=== PATIENT | male | born 1940 | race Caucasian/White ===

== ENCOUNTER 2018-09-19 17:31 | Inpatient (IN) | payer MEDICARE ==
[~2018-09-19] VITALS: Ht 167.6 cm; Wt 54.4 kg
[~2018-09-19 17:31] MED LIST: Carafate1 GM/10 ML PO; Ranitidine15 MG/1 ML PO
[2018-09-19 18:33] LABS: Hematocrit 21.5 % (37.0-53.0); Hemoglobin 7.2 g/dL (13.5-17.5); Mean Corpuscular HGB 33.5 pg (26.0-34.0); Mean Corpuscular HGB Conc 33.5 g/dL (31.5-36.5); Mean Corpuscular Volume 100 fL (80-100); Mean Platelet Volume 10.4 fL (9.1-12.4); NRBC ABSOLUTE 0.15 K/mm3 (0.00-0.02); NRBC Auto 2.5 /100 WBC (0.0-0.2); RDW Standard Deviation 63.7 fL (35.1-46.3); Red Blood Cell Count 2.15 M/mm3 (4.30-5.90); White Blood Cell Count 5.93 K/mm3 (4.00-11.30)
[2018-09-19 18:51] LABS: Platelet Count 37 K/mm3 (150-400)
[2018-09-19 18:57] LABS: Alanine Aminotransfer (ALT/SGP 19 U/L (12-78); Albumin/Globulin Ratio 0.8 (0.8-1.8); Alk Phos 73 U/L (50-136); Anion Gap 12 mmol/L (6-16); Aspartate Aminotrans (AST/SGOT 59 U/L (12-37); Bilirubin, Total 0.9 mg/dL (0.1-1.0); Blood Urea Nitrogen 21 mg/dL (8-24); Bun/Creatinine Ratio 25.2 (12.0-20.0); CO2, Blood 24 mmol/L (21-32); Calcium, Blood 9.9 mg/dL (8.5-10.1); Chloride, Blood 102 mmol/L (98-108); Creatinine, Blood 0.83 mg/dL (0.60-1.20); Globulin, Blood 3.7 g/dL (2.2-4.0); Glomerular Filtration Rate >60 (60-); Glucose, Blood 105 mg/dL (70-99); Potassium, Blood 4.1 mmol/L (3.5-5.5); Sodium, Blood 138 mmol/L (136-145); Total Protein, Blood 6.7 g/dL (6.4-8.2)
[2018-09-19 19:16] LABS: BAND PERCENT MAN 9 % (0-8); BASOPHILS PERCENT MAN 0 % (0-2); EOSINOPHILS PERCENT MAN 0 % (0-6); LYMPHOCYTES PERCENT MAN 22 % (21-46); METAMYELOCYTE ABSOLUTE MAN 0.23 K/mm3 (0.00-0.00); METAMYELOCYTE PERCENT MAN 4 % (0-0); MONOCYTES ABSOLUTE MAN 0.29 K/mm3 (0.16-1.47); MONOCYTES PERCENT MAN 5 % (4-13); MYELOCYTE ABSOLUTE MAN 0.11 K/mm3 (0.00-0.00); MYELOCYTE PERCENT MAN 2 % (0-0); NEUTROPHILS ABSOLUTE MAN 3.97 K/mm3 (1.96-9.15); SEG NEUTROPHILS PERCENT MAN 58 % (41-73); TOTAL CELLS COUNTED 100
[2018-09-19 19:46] LABS: International Normalized Ratio 1.03; Prothrombin Time Results 10.9 Sec (9.7-11.5)
[2018-09-19 22:46] LABS: IMMATURE RETIC FRACTION 33.9 % (2.3-16.0); RETIC HGB EQUIVALENT 33.5 pg (28.20-36.60); RETICULOCYTE COUNT PERCENT 3.41 % (0.50-2.50)
[2018-09-19 22:57] LABS: Percent Saturation 97.1 % (20.0-50.0)
[2018-09-20 04:42] LABS: Hematocrit 23.3 % (37.0-53.0); Hemoglobin 7.8 g/dL (13.5-17.5); Mean Corpuscular HGB 32.4 pg (26.0-34.0); Mean Corpuscular HGB Conc 33.5 g/dL (31.5-36.5); Mean Platelet Volume 10.2 fL (9.1-12.4); NRBC ABSOLUTE 0.19 K/mm3 (0.00-0.02); NRBC Auto 3.2 /100 WBC (0.0-0.2); RDW Coefficient Variation 17.8 % (11.7-14.2); RDW Standard Deviation 59.7 fL (35.1-46.3); Red Blood Cell Count 2.41 M/mm3 (4.30-5.90); White Blood Cell Count 6.02 K/mm3 (4.00-11.30)
[2018-09-20 05:03] LABS: Alanine Aminotransfer (ALT/SGP 16 U/L (12-78); Albumin, Blood 2.7 g/dL (3.4-5.0); Albumin/Globulin Ratio 0.8 (0.8-1.8); Alk Phos 71 U/L (50-136); Anion Gap 11 mmol/L (6-16); Aspartate Aminotrans (AST/SGOT 60 U/L (12-37); Bilirubin, Total 0.8 mg/dL (0.1-1.0); Blood Urea Nitrogen 19 mg/dL (8-24); Bun/Creatinine Ratio 23.4 (12.0-20.0); CO2, Blood 23 mmol/L (21-32); Calcium, Blood 9.1 mg/dL (8.5-10.1); Chloride, Blood 104 mmol/L (98-108); Creatinine, Blood 0.81 mg/dL (0.60-1.20); Globulin, Blood 3.3 g/dL (2.2-4.0); Glomerular Filtration Rate >60 (60-); Glucose, Blood 91 mg/dL (70-99); Potassium, Blood 3.8 mmol/L (3.5-5.5); Sodium, Blood 138 mmol/L (136-145)
[2018-09-20 05:11] LABS: Mean Corpuscular Volume 97 fL (80-100)
[2018-09-20 05:14] LABS: Platelet Count 31 K/mm3 (150-400)
--- NOTE | 2018-09-20 07:32 | NUR ---
Rn summary: Patient was admitted via stretcher form the ED at midnight. Pt is alert and oriented, very quiet and withdrawn. Pt has minimal jarred hx. Pt has fallen several times at home the last 2 weeks. Pt has been in bed only this shift. Pt was medicated x1 with 25mcg fentanyl for back pain with good relief. Pt has rested without complaint. Skin is pale, dry and has scattered eccymotic areas on all extremities. Pt had 1 unit PRBC hanging on admit. Blood finished. Plt level critical 31 this am, Dr. Rangel was notified, also of hgb of 7.8. Call light is in reach. Resting.
[2018-09-20 09:50] LABS: Carcinoembryonic Antigen 7.5 ng/mL (0.0-3.0)
[2018-09-20 12:18] LABS: Source, Urine Clean Catch
[2018-09-20 12:21] LABS: Appearance, Urine Clear (Clear); Bilirubin, Urine Neg (Neg); Blood, Urine 1+ (Neg); Color, Urine Yellow (P-Yellow); Glucose Qualitative, Urine Neg (Neg); Ketones, Urine 1+ (Neg); Leukocyte Esterase, Urine 1+ (Neg); Nitrite, Urine Neg (Neg); Protein, Urine 2+ (Neg); Urobilinogen, Urine 1+ (Normal)
[2018-09-20 12:30] LABS: Bacteria Few /hpf; Red Blood Cells, Urine 0-2 /hpf (0-2); Squamous Epithelial Cells Rare /hpf (Few)
--- NOTE | 2018-09-20 17:01 | NUR ---
SHIFT SUMMARY PT HAS HAD NO ACUTE CHANGES THIS SHIFT, MEDICATED 1X FOR PAIN IN LOWER BACK, ENCOURAGED PT TO SIT UP IN CHAIR, BRIEFLY DID FOR THERAPY W/1 ASSIST BUT REQUESTED TO GO BACK TO BED AFTER A FEW MINUTES. PT APPEARS TO BE SLEEPING AT THIS TIME, WILL CONT TO MONITOR UNTIL REPORT GIVEN TO NOC RN.
--- NOTE | 2018-09-21 04:06 | NUR ---
SHIFT SUMMARY NO ACUTE CHANGES THIS SHIFT. PT HAS SLEPT T/O THE SHIFT. REPEAT CT SCAN DONE EARLIER THIS SHIFT. PT 1 PA, OOB. USES THE URINAL INDEPENDENTLY AT BEDSIDE. NS INFUSING PER ORDERS. ASSESSMENT UNCHANGED. WILL CONTINUE TO MONITOR AND REPORT TO ONCOMING RN.
[2018-09-21 05:08] LABS: Hematocrit 22.5 % (37.0-53.0); Hemoglobin 7.3 g/dL (13.5-17.5); Mean Corpuscular HGB 31.3 pg (26.0-34.0); Mean Corpuscular HGB Conc 32.4 g/dL (31.5-36.5); Mean Corpuscular Volume 97 fL (80-100); Mean Platelet Volume 10.1 fL (9.1-12.4); NRBC ABSOLUTE 0.21 K/mm3 (0.00-0.02); NRBC Auto 3.8 /100 WBC (0.0-0.2); RDW Coefficient Variation 18.1 % (11.7-14.2); Red Blood Cell Count 2.33 M/mm3 (4.30-5.90); White Blood Cell Count 5.55 K/mm3 (4.00-11.30)
[2018-09-21 05:21] LABS: Platelet Count 27 K/mm3 (150-400)
--- NOTE | 2018-09-21 06:22 | NUR ---
HGB AND PLT HGB 7.3, PLT 27. THIS AM. DR. CENTENO CALLED AND NOTIFIED. 1 UNIT OF PRBC'S ORDERED.
--- NOTE | 2018-09-21 16:09 | NUR ---
SHIFT SUMMARY PT HAS HAD NO ACUTE CHANGES THIS SHIFT, MEDICATED PER MAR FOR PAIN, [facility] BUT ATTEMPTED TO AMBULATE INDEP THIS SHIFT. PT APPEARS TO BE SLEEPING AT THIS TIME, BED ALARM ON, WILL CONT TO MONITOR UNTIL REPORT GIVEN TO FLO RN.
--- NOTE | 2018-09-21 17:21 | NUR ---
Initial Visit: Palliative Care Consult for Advanced Care Planning and Symptom Management. Pt is A&Ox4 and reports 8/10 pain in his ribs and back. He states the pain medication helps a little but still experiences significant pain. Pt magali dyspnea. Pt appears mildly anxious. Engaged in therapeutic conversaton regarding goals of care. Pt denies any samaritan beliefs. Pt reports living alone in a small travel trailer in [place] at [facility]. He has a son Marty that lives in [place] and has not spoken with him in years. He has a brother Yfn that lives in [place]. Pt reports feeling exptremely weak and poor sense of well being for approximately a week. He states due to his weakness and energy level he requires assistance with ambulation, bathing, dressing, and transfers. Listened as Pt expresses concerns and fears regarding his diagnosis. Pt states he has fear of what the cancer will do. He states fear of the cancer taking his life and causing pain and suffering. Asked Pt if he has consider any plans if the Dr reports if the cancer is treatable and if he has considered plans if the Dr reports cancer is not treatable. Pt reports that if cancer is treatable he plans to persue treatment. He states being unsure if new is bad and cancer is not treatable. Discussed POLST formed that is on file that was recently completed by his friend. Current POLST states DNR, Comfort Measures Only, and No Artificial Treatment by Tube. Pt states that he would like to reconsider his POLST. Offered to help complete a new POLST and Pt states that he would like to think about it befor making a decision. As the visit continued Pt appeared to be shutting down and giving martha ques of wanting to be left alone such as turning television on. Offered to end visit and F/U tomorrow and Pt agreed. Spoke with Pt's nurse Mireya and she reports concerns of pain management. She reports that she gave only one table of the oxycodone and will plan to give 2 tablets next time. Emar allows 1-2 tablets. No other concerns reported at this time. Currently ADLS 3/6 Karn[place]sky 50% PPS 40% Plan: Will remain available for pain mangement. Will place social service consult for assistance with caregivers. Will continue to explore Pt's wishes for treatment. Current POLST on file is not valid, no physician signature.
--- NOTE | 2018-09-22 04:29 | NUR ---
SHIFT SUMMARY PT HAS RESTED OFF AND ON T/O NIGHT. EFFECT IS FLAT, CONVERSATION IS MINIMAL, HOWEVER PT IS PLESANT. PT MEDICATED FOR BACK PAIN PER EMAR ORDERS. HE DENIES NEEDS MOSTLY T/O THE NIGHT. REMEROM GIVEN FOR SLEEP, HS. HE STATES THAT IT DID NOT WORK FOR HIM, AND REQUESTS SOMETHING DIFFERENT FOR SLEEP. WILL NOTIFY DAYSHIFT RN FOR FOLLOW UP. ASSESSMENT OTHERWISE UNCHANGED. WILL CONTINUE TO MONITOR AND REPORT TO ONCOMING RN.
[2018-09-22 05:19] LABS: Hematocrit 26.2 % (37.0-53.0); Hemoglobin 8.5 g/dL (13.5-17.5); Mean Corpuscular HGB 30.5 pg (26.0-34.0); Mean Corpuscular HGB Conc 32.4 g/dL (31.5-36.5); Mean Platelet Volume 10.4 fL (9.1-12.4); NRBC ABSOLUTE 0.16 K/mm3 (0.00-0.02); NRBC Auto 3.3 /100 WBC (0.0-0.2); RDW Coefficient Variation 17.9 % (11.7-14.2); RDW Standard Deviation 57.9 fL (35.1-46.3); Red Blood Cell Count 2.79 M/mm3 (4.30-5.90); White Blood Cell Count 4.83 K/mm3 (4.00-11.30)
[2018-09-22 05:23] LABS: Mean Corpuscular Volume 94 fL (80-100)
[2018-09-22 05:24] LABS: Platelet Count 19 K/mm3 (150-400)
--- NOTE | 2018-09-22 18:23 | NUR ---
PT. SITTING UP IN BED EATING. NO NOTEABLE CHANGES THIS SHIFT. 1 UN[address]ATLETS GIVEN PER DR. NUNEZ. RADIOLOGIST REFUSED TO PERFORM BIOPSY TODAY BECAUSE OF LOW PLATELET COUNT. PT. COUGHING UP COPIOUS AMOUNTS OF CREAMY LOOKING SPUTUM. SUCTION SET UP FOR PT. TO USE. NO FURTHER WORD ABOUT BIOPSY, HOSPITALIST ONLY ONE TO SEE PT. TODAY.
--- NOTE | 2018-09-23 04:57 | NUR ---
AUTO BODY REPAIR TECHNICIAN SUMMARY NO ACUTE CHANGES THIS SHIFT. PT AAOX3, FORGETFUL AT TIMES. PT USES URINAL AT BEDSIDE WITH A STANDBY ASSIST. PT DENIES PAIN, N/V, SOB. PT ATE MINIMAL AMOUNT OF HIS DINNER LAST NIGHT BUT DID FINISH ENSURE AND TOMATO JUICE THAT WERE INCLUDED. PT ONLY HAS TOP DENTURE AND STATES IT'S DIFFICULT TO EAT FOOD WITH ONLY HIS TOP DENTURE. PT STATES HE LOST BOTTOM DENTURE "SEVERAL DAYS BEFORE COMING TO HOSPITAL". PT ALREADY ON [facility] SOFT DIET, WILL REPORT TO DAY RN TO OFFER ENSURES AND OTHER CALORIE RICH DRINKS THAT PT ENJOYS. VSS, WILL CONTINUE TO MONITOR.
[2018-09-23 05:40] LABS: Hemoglobin 8.6 g/dL (13.5-17.5); Mean Corpuscular HGB 30.9 pg (26.0-34.0); Mean Corpuscular HGB Conc 33.1 g/dL (31.5-36.5); Mean Corpuscular Volume 94 fL (80-100); Mean Platelet Volume 10.3 fL (9.1-12.4); NRBC ABSOLUTE 0.17 K/mm3 (0.00-0.02); NRBC Auto 3.7 /100 WBC (0.0-0.2); RDW Coefficient Variation 17.4 % (11.7-14.2); Red Blood Cell Count 2.78 M/mm3 (4.30-5.90)
[2018-09-23 05:49] LABS: Platelet Count 30 K/mm3 (150-400)
[2018-09-23 06:06] LABS: BAND PERCENT MAN 10 % (0-8); BASOPHILS ABSOLUTE MAN 0.13 K/mm3 (0.00-0.23); BASOPHILS PERCENT MAN 3 % (0-2); EOSINOPHILS PERCENT MAN 0 % (0-6); LYMPHOCYTES ABSOLUTE MAN 1.74 K/mm3 (0.84-5.20); LYMPHOCYTES PERCENT MAN 38 % (21-46); MONOCYTES ABSOLUTE MAN 0.23 K/mm3 (0.16-1.47); MONOCYTES PERCENT MAN 5 % (4-13); NEUTROPHILS ABSOLUTE MAN 2.48 K/mm3 (1.96-9.15); SEG NEUTROPHILS PERCENT MAN 44 % (41-73); TOTAL CELLS COUNTED 100
[2018-09-23 06:15] LABS: Alanine Aminotransfer (ALT/SGP 19 U/L (12-78); Albumin, Blood 2.6 g/dL (3.4-5.0); Albumin/Globulin Ratio 0.8 (0.8-1.8); Alk Phos 77 U/L (50-136); Anion Gap 9 mmol/L (6-16); Aspartate Aminotrans (AST/SGOT 92 U/L (12-37); Bilirubin, Total 1.3 mg/dL (0.1-1.0); Blood Urea Nitrogen 12 mg/dL (8-24); Bun/Creatinine Ratio 18.8 (12.0-20.0); CO2, Blood 23 mmol/L (21-32); Calcium, Blood 8.7 mg/dL (8.5-10.1); Chloride, Blood 105 mmol/L (98-108); Creatinine, Blood 0.64 mg/dL (0.60-1.20); Globulin, Blood 3.3 g/dL (2.2-4.0); Glomerular Filtration Rate >60 (60-); Glucose, Blood 98 mg/dL (70-99); Potassium, Blood 3.5 mmol/L (3.5-5.5); Sodium, Blood 137 mmol/L (136-145); Total Protein, Blood 5.9 g/dL (6.4-8.2)
[2018-09-23 12:46] LABS: Mean Platelet Volume 9.6 fL (9.1-12.4); Platelet Count 64 K/mm3 (150-400)
--- NOTE | 2018-09-23 15:28 | NUR ---
Pt visit this afternoon. Pt reports 03/03 and states that he has not had any medication is a while. Educated Pt on the importance of pain management and keeping pain under control. He reports the medication brings his pain down to a tolerable level. Answered questions regarding plans for biopsy and possible treatment options. Educated Pt on prognosis based off Dr Simon's note. Pt would like to pursue treatment at this time. Pt reports that he would like to complete a new POLST. Educated Pt on each section of life sustaining measures. Pt chooses DNR, Limited Treatment, and No Artificial Nutrition by tube. Pt reports no concerns at this time. Spoke with Pt's nurse Anne and reported his pain level. Plan: Will remain availale for symptom management and will fax copy of POLST to Medical Records upon hospitalist signature.
--- NOTE | 2018-09-23 19:17 | NUR ---
PT. LYING QUIETLY AT THIS TIME. PT. RECEIVED 1 UNITS PLATELETS TODAY WHICH BROUGHT HIS PLT COUNT TO 64. NOTIFIED DR. OSCAR., AND CT SO BIOPSY COULD BE DONE. ZHANG NEVILLE PUT IN BECAUSE OTHER WAS CANCELLED YESTERDAY. CT CALLED CALLED TO SAY THEY COULDNT DO IT TODAY BUT WOULD DO IT TOMORROW. PT. PULLED HIS IV AROUND 1600 THIS AFTERNOON AND THERE WAS BLOOD EVERYWHERE. NEW POWER GLIDE STARTED SO THE PPN COULD BE STARTED. PT. UNABLE TO SWALLOW FOOD OR LIQUIDS, THEY JUST COME BACK UP. NOTIFIED ORDERED PN TO BE STARTED.
--- NOTE | 2018-09-23 23:43 | NUR ---
PAIN PT NPO AT THIS TIME. C/O OF 9 OUT OF 10 BACK PAIN. AMINISTERED 25 MCG IV FENTANYL. THIS IS PT FIRST TIME RECIEVING THIS MED, HE NORMALLY TAKES PO PAIN MEDS. HOWEVER, PT IS NPO STATED ABOVE. WILL CONT TO MONITOR.
[2018-09-24 06:15] LABS: BASOPHILS ABSOLUTE AUTO 0.03 K/mm3 (0.00-0.23); BASOPHILS PERCENT AUTO 1 % (0-2); EOSINOPHILS ABSOLUTE AUTO 0.04 K/mm3 (0.00-0.68); EOSINOPHILS PERCENT AUTO 1 % (0-6); Hematocrit 26.4 % (37.0-53.0); Hemoglobin 8.7 g/dL (13.5-17.5); IMMATURE GRAN ABSOLUTE AUTO 0.11 K/mm3 (0.00-0.10); IMMATURE GRAN PERCENT AUTO 2 % (0-1); LYMPHOCYTES ABSOLUTE AUTO 2.04 K/mm3 (0.84-5.20); LYMPHOCYTES PERCENT AUTO 44 % (21-46); MONOCYTES ABSOLUTE AUTO 0.36 K/mm3 (0.16-1.47); MONOCYTES PERCENT AUTO 8 % (4-13); Mean Corpuscular HGB 31.9 pg (26.0-34.0); Mean Platelet Volume 10.7 fL (9.1-12.4); NEUTROPHILS ABSOLUTE AUTO 2.11 K/mm3 (1.96-9.15); NEUTROPHILS PERCENT AUTO 45 % (41-73); NRBC ABSOLUTE 0.14 K/mm3 (0.00-0.02); RDW Coefficient Variation 17.9 % (11.7-14.2); RDW Standard Deviation 60.3 fL (35.1-46.3); Red Blood Cell Count 2.73 M/mm3 (4.30-5.90); White Blood Cell Count 4.69 K/mm3 (4.00-11.30)
[2018-09-24 06:17] LABS: Magnesium, Blood 1.5 mg/dL (1.6-2.4); Phosphorus, Blood 3.5 mg/dL (2.5-4.9); Triglycerides 226 mg/dL (30-160)
[2018-09-24 06:27] LABS: Mean Corpuscular Volume 97 fL (80-100)
[2018-09-24 06:29] LABS: Platelet Count 49 K/mm3 (150-400)
--- NOTE | 2018-09-24 06:32 | NUR ---
CRITICALLY LOW PLATELET ON 09/24 @ 6049, NOTIFIED BY LAB OF CRITICALLY LOW PLATELET OF 49. SPOKE WITH PATROL COMMANDER ABOUT NEEDING PLATELET OVER [address] TAKE PL[address]. DECIDED PLACING CALL TO HOSPITALIST IS NOT NECESSARY PLATETLET IS ABOVE 40. WILL CONT TO MONITOR.
--- NOTE | 2018-09-24 06:37 | NUR ---
SHIFT SUMMARY: PT BECOMES INCREASINGLY CONFUSED THE NIGHT PROGRESSES, REPORTS SEEING "BIRDS" IN HIS RM, AND CONVINCED THE SINK IS MISSING. PT ALSO ASKS, "ARE WE STILL IN [place]?". ALERT TO SELF, PERSON, AND DATE/YEAR. ABLE TO ANSWER Q'S AND FOLLOW COMMANDS. VERY WEAK GAIT AND STUMBLES JUST STANDING UP AT BEDSIDE; BED ALARM ON FOR SAFETY. PT NPO D/T ASPIRATION RISK. C/O OF ACID REFLUX, RECIEVED ORDER FOR IV PEPCID BID (SEE EMAR). ADMINISTERED 25 MCG IV FENTANYL FOR BACK PAIN TWICE, PROVIDES RELIEF. PT REFUSES SUPPOSITORY TONIGHT, "GET THAT THING AWAY FROM ME, NO WAY" AND SWATS HAND. CRITICALLY LOW PLATELET OF 49 WITH THIS AM LABS. PPN RUNNING @ 96 ML/HR. NO OTHER CHANGES TO REPORT. WILL CONT TO MONITOR AND PROVIDE CARE UNTIL PRESUMED BY ONCOMING RN.
[2018-09-24 08:31] LABS: Free Thyroxine 1.25 ng/dL (0.70-1.60)
[2018-09-24 08:50] LABS: Thyroid Stimulating Hormone 17.1 uIU/mL (0.360-4.800)
--- NOTE | 2018-09-24 15:38 | NUR ---
Received call from Pt's nurse Anne who reports biposy was not performed due to Pt's inability to lie still. Called and received V/O from Dr Marquez for Ativan 1-2mg IV one time before procedure. Spoke with Radiologist nuclear engineering technician and she reports the do not have time to fit Pt in for today and will attempt tomorrow pending Pt's platlet count. Spoke with Kerry clinical case manager regarding Pt's condition and options for treatment. Based off Dr Simon's note, it appears Dr Simon would like to afford every opportunity for Pt to receive treatment. Currently Pt lives alone in small travel trailer in [place]. After discussion with Pt yesterday, Pt would like to pursue treatment. Based off Pt's current condition Pt's safety is at risk if her were to discharge home to receive treatment at the cancer center. His energy level is significantly decreased and requires considerable assistance with his ADL's. Kerry reports that she will relay information to clinical case manager Brandy. May consider a higher level of care such as a foster home in which he can be transported to cancer center to recieve treatment. Pt's current level of decision making is marginal and if case becomes much more complex may need to consider ethics consult. Will remain available
--- NOTE | 2018-09-24 17:26 | NUR ---
PT. SLEEPING OPENS EYES AND THEN CLOSES THEM BACK WHEN SPOKEN TO. FRIEND MARJAN CAME IN THIS AFTERNOON AND SPOKE WITH S.S. REGARDING BECOMING A POWER OF WHITE SIDEWALL TIRE BUFFER FOR THE PATIENT AND GET HIM STARTED ON SOME TYPE OF ASSISSTANCE. PT. WENT FOR HIS BIOPSY THIS AFTERNOON AT [address] OF HEAD AT SAME TIME. RADIOLOGIST SAID THEY WERE UNABLE TO PERFORM THE BIOPST BECAUSE PT. UNABLE TO LIE STILL OR QUIT COUGHING, HAD TO CLEAN THE TABLE 2 OR 3 TIMES FROM WHAT THE PT. WAS COUGHING UP. ALSO RELATED THEY ARE GOING TO BE UNABLE TO PERFORM THE LIVER BIOPSY BUT WOULD HAVE TO DO A LUNG BIOPSY THEY CANT REACH THE LIVER. RADIOLOGIST FEELS ITS POSSIBLE WHEN THE LUNG BIOPSY IS DONE THAT IT WILL COLLAPSE THE LUNG. CALLED DR. GERARDO THE MORNING FOR A SURGICAL CONSULT TO PLACE A FEEDING TUBE IN PT. DR. SILVA THE ONE I NEEDED TO CALL IS THE GI. RELATED THIS TO DR. MOONEY AND HE PUT A CONSULT IN FOR GI. DR. HONG CONSULTED. SPOKE WITH PALLIATIVE CARE REGARDING MY COONCERNS OF A FEEDING TUBE BEING PLACED. PT. HAS A POLST SAYING HE DID NOT WANT A FEEDING TUBE, HIS FRIEND MARJAN ALSO VERIFIED HE DIDN'T WANT ONE, THEY DISCUSSED IT AND SHE HELPED HIM WITH FILLING OUT THE POLST. RADIOLOGY IS GOING TO ATTEMPT THE BIOPSY AGAIN TOMORROW AND DR. OSCAR WROTE FOR ATIVAN TO BE GIVEN, THE MED IS STILL ON THE EMAR. NO OTHER NOTEABLE CHANGES THIS SHIFT. HIM FILL OUT THE
--- NOTE | 2018-09-24 17:48 | NUR ---
PT. ALSO REFUSED TO WORK WITH PT/OT TODAY
[2018-09-25 05:12] LABS: Hematocrit 23.2 % (37.0-53.0); Hemoglobin 7.9 g/dL (13.5-17.5); Mean Corpuscular HGB 32.1 pg (26.0-34.0); Mean Corpuscular HGB Conc 34.1 g/dL (31.5-36.5); Mean Platelet Volume 10.1 fL (9.1-12.4); NRBC ABSOLUTE 0.14 K/mm3 (0.00-0.02); NRBC Auto 3.6 /100 WBC (0.0-0.2); RDW Coefficient Variation 17.3 % (11.7-14.2); RDW Standard Deviation 56.4 fL (35.1-46.3); Red Blood Cell Count 2.46 M/mm3 (4.30-5.90); White Blood Cell Count 3.92 K/mm3 (4.00-11.30)
[2018-09-25 05:21] LABS: Mean Corpuscular Volume 94 fL (80-100)
[2018-09-25 05:22] LABS: Platelet Count 39 K/mm3 (150-400)
[2018-09-25 05:35] LABS: BAND PERCENT MAN 7 % (0-8); BASOPHILS PERCENT MAN 0 % (0-2); EOSINOPHILS ABSOLUTE MAN 0.03 K/mm3 (0.00-0.68); EOSINOPHILS PERCENT MAN 1 % (0-6); LYMPHOCYTES % ATYPICAL MANUAL 1 % (0-0); LYMPHOCYTES ABSOLUTE MAN 1.29 K/mm3 (0.84-5.20); LYMPHOCYTES PERCENT MAN 32 % (21-46); METAMYELOCYTE ABSOLUTE MAN 0.03 K/mm3 (0.00-0.00); METAMYELOCYTE PERCENT MAN 1 % (0-0); MONOCYTES ABSOLUTE MAN 0.31 K/mm3 (0.16-1.47); MONOCYTES PERCENT MAN 8 % (4-13); NEUTROPHILS ABSOLUTE MAN 2.23 K/mm3 (1.96-9.15); SEG NEUTROPHILS PERCENT MAN 50 % (41-73); TOTAL CELLS COUNTED 100
--- NOTE | 2018-09-25 06:03 | NUR ---
SHIFT SUMMARY: PT IS LESS ALERT AND DROWSY TONIGHT. NO NARCOTICS GIVEN. ALERT TO SELF ONLY, UNABLE TO REPORT LOCATION AND MONTH/YEAR. DOES NOT ANSWER QUESTIONS APPROPRIATELY, OR EVEN AT ALL AT TIMES. Q2H TURNS IMPLEMENTED PT IS BECOMING VERY WEAK AND UNABLE TO SHIFT SELF IN BED. LS DIM T/O, 02 SATS WNL ON RA. NPO D/T ASPIRATION RISK. PPN RUNNING @ 96 ML/HR. Q6H CBG WNL. CRITICAL LOW PLATELET OF 39 THIS AM, WHICH MAY AFFECT BIOPSY TODAY. NO OTHER CHANGES TO REPORT. WILL CONT TO MONITOR AND PROVIDE CARE UNTIL PRESUMED BY ONCOMING RN.
[2018-09-25 06:37] LABS: Alanine Aminotransfer (ALT/SGP 20 U/L (12-78); Albumin, Blood 2.4 g/dL (3.4-5.0); Albumin/Globulin Ratio 0.7 (0.8-1.8); Alk Phos 67 U/L (50-136); Anion Gap 10 mmol/L (6-16); Aspartate Aminotrans (AST/SGOT 76 U/L (12-37); Bilirubin, Total 0.9 mg/dL (0.1-1.0); Blood Urea Nitrogen 14 mg/dL (8-24); Bun/Creatinine Ratio 23.6 (12.0-20.0); CO2, Blood 23 mmol/L (21-32); Calcium, Blood 8.7 mg/dL (8.5-10.1); Chloride, Blood 102 mmol/L (98-108); Creatinine, Blood 0.59 mg/dL (0.60-1.20); Globulin, Blood 3.4 g/dL (2.2-4.0); Glomerular Filtration Rate >60 (60-); Glucose, Blood 119 mg/dL (70-99); Phosphorus, Blood 3.7 mg/dL (2.5-4.9); Potassium, Blood 3.6 mmol/L (3.5-5.5); Sodium, Blood 135 mmol/L (136-145); Total Protein, Blood 5.8 g/dL (6.4-8.2)
[2018-09-25 06:46] LABS: Magnesium, Blood 1.7 mg/dL (1.6-2.4)
--- NOTE | 2018-09-25 14:22 | NUR ---
Therapeutic Pt visit this afternoon. Pt resting in bed upon arrival and appears comfortable. Pt reports his pain is currently managed. Attempted to engage in discussion regarding things Pt likes to do. Pt romi mentions that he likes to watch football but does not elaborate any further. Pt seems withdrawn today. Attempted to talk about the weather in hopes Pt would engage with little success. Pt reports no concerns and is agreeable for this RN to come back and visit tomorrow or the next day. Will remain available.
--- NOTE | 2018-09-25 16:21 | NUR ---
Follow up this morning on patient. pt resing and comfotable. Review of patient needs for support through treatment and discharge. Review with daycare manager getting documention from Kerry his friend so pt has surrogate decison maker and support. Review of strategies of placement so he can get rides and care. When plan formalized with physicians will get him supportive care.
--- NOTE | 2018-09-25 18:18 | NUR ---
SHIFT SUMMARY THE PATIENT PRESENTED THIS SHIFT WITH VITALS WNL, A&O X3 AND WITH LUNGS SOUNDS THAT WERE DIMINISHED ND COARSE. THE PATIENT'S DOCTOR ORDERED A G TUBE PLACEMENT BY DR. MOROCHO. THE PATIENT RECEIVED A UNIT OF PLATELETS THIS AFTERNOON BEFORE HIS SCHEDULED SURGERY. THE PATIENT HAD DIFFERENT ORDERS FOR HIS IV NUTRICION. THE PATIENT ALSO HAD HIS PAIN MEDICATION CHANGED TO MORPHINE AND HE SEEMS TO BE HAVING LESS CONFUSION NOW. THE PATIENT IS WATCHING TV, WILL CONTINUE TO MONITOR.
--- NOTE | 2018-09-25 19:19 | NUR ---
09/25/181918 Ruslan Loredo Bite Block Placed3-LEAD EKG REVIEWED WITH PHYSICIAN PRIOR TO START OF PROCEDURE.Patient to ENDO 1History, Chart, Medications and Allergies reviewed before start of procedure.MONITOR INTACT WITH CONTINUOUS PULSE OXIMETRY AND INTERMITTENT BP.O2 VIA N/C INTACT THROUGHOUT SEDATION/PROCEDURE.See Anesthesia record
--- NOTE | 2018-09-25 19:26 | NUR ---
PT OFF UNIT @ START OF SHIFT FOR G TUBE PLACEMENT.
--- NOTE | 2018-09-25 22:37 | NUR ---
PT ARRIVED BACK TO UNIT @ 2014. G TUBE PLACEMENT UNSUCCESSFUL ESOPHAGEAL MASS IS TOO LARGE. BIOPSY TAKEN OF ESOPHAGEAL MASS PER DR DANIELS.
[2018-09-26 05:34] LABS: Hematocrit 23.5 % (37.0-53.0); Mean Corpuscular HGB 31.9 pg (26.0-34.0); Mean Corpuscular Volume 94 fL (80-100); Mean Platelet Volume 12.5 fL (9.1-12.4); NRBC ABSOLUTE 0.19 K/mm3 (0.00-0.02); NRBC Auto 5.2 /100 WBC (0.0-0.2); Platelet Count 62 K/mm3 (150-400); RDW Coefficient Variation 17.8 % (11.7-14.2); RDW Standard Deviation 57.6 fL (35.1-46.3); Red Blood Cell Count 2.51 M/mm3 (4.30-5.90); White Blood Cell Count 3.66 K/mm3 (4.00-11.30)
[2018-09-26 05:57] LABS: BAND PERCENT MAN 15 % (0-8); BASOPHILS PERCENT MAN 0 % (0-2); EOSINOPHILS ABSOLUTE MAN 0.03 K/mm3 (0.00-0.68); EOSINOPHILS PERCENT MAN 1 % (0-6); LYMPHOCYTES ABSOLUTE MAN 1.02 K/mm3 (0.84-5.20); LYMPHOCYTES PERCENT MAN 28 % (21-46); METAMYELOCYTE PERCENT MAN 3 % (0-0); MONOCYTES ABSOLUTE MAN 0.21 K/mm3 (0.16-1.47); MONOCYTES PERCENT MAN 6 % (4-13); MYELOCYTE ABSOLUTE MAN 0.03 K/mm3 (0.00-0.00); MYELOCYTE PERCENT MAN 1 % (0-0); NEUTROPHILS ABSOLUTE MAN 2.23 K/mm3 (1.96-9.15); SEG NEUTROPHILS PERCENT MAN 46 % (41-73); TOTAL CELLS COUNTED 100
[2018-09-26 07:15] LABS: Magnesium, Blood 1.6 mg/dL (1.6-2.4)
[2018-09-26 07:18] LABS: Alanine Aminotransfer (ALT/SGP 22 U/L (12-78); Albumin, Blood 2.3 g/dL (3.4-5.0); Albumin/Globulin Ratio 0.6 (0.8-1.8); Alk Phos 72 U/L (50-136); Anion Gap 9 mmol/L (6-16); Aspartate Aminotrans (AST/SGOT 72 U/L (12-37); Bilirubin, Total 0.8 mg/dL (0.1-1.0); Blood Urea Nitrogen 16 mg/dL (8-24); Bun/Creatinine Ratio 28.5 (12.0-20.0); CO2, Blood 24 mmol/L (21-32); Calcium, Blood 8.6 mg/dL (8.5-10.1); Chloride, Blood 100 mmol/L (98-108); Creatinine, Blood 0.56 mg/dL (0.60-1.20); Globulin, Blood 3.6 g/dL (2.2-4.0); Glomerular Filtration Rate >60 (60-); Glucose, Blood 107 mg/dL (70-99); Phosphorus, Blood 3.5 mg/dL (2.5-4.9); Potassium, Blood 3.6 mmol/L (3.5-5.5); Sodium, Blood 133 mmol/L (136-145); Total Protein, Blood 5.9 g/dL (6.4-8.2)
--- NOTE | 2018-09-26 07:38 | NUR ---
SHIFT SUMMARY: PT UNABLE TO HAVE G TUBE PLACEMENT ESOPHAGEAL MASS IS TOO LARGE TO PASS THROUGH. PER DR DANIELS, PT ESOPHAGUS IS OCCLUDED. PT TREATED 1X FOR PAIN. CLINIMIX AND FAT EMULSION RUNNING TOGETHER IN RANDAL PG. PT SEEMS FLAT, WITHDRAWN TONIGHT. NO OTHER CHANGES TO REPORT. WILL CONT TO MONITOR AND PROVIDE CARE UNTIL PRESUMED BY ONCOMING RN.
--- NOTE | 2018-09-26 15:15 | NUR ---
Pt visit this afternoon. Viewed Dr Simon's note and recommendation regarding hospice. Asked Pt if he had any quesitons regarding Dr Simon's conversation and his recommendation. Pt states that he chooses hospice. Offered Pt to express concerns and fears regarding this decision and prognosis. Pt states "I wish people would quit worrying about me". Asked Pt if this meant that he does not like being the center of attention and he states "no I don't like being the center of attention". Educated Pt on hospice philosphy with V/U made by Pt. Educated Pt on philosophy of comfort measures and Pt reports that he would like to start comfort measures now. Received permission from Pt to contact his friend Kerry regarding his decisions. Called and spoke with Kerry and reported plan. She states that she will be in tonight or tomorrow to visit. She also states that she will discuss completing new POLST with Pt. Spoke with Dr Marquez regarding Pt's wishes and Dr Marquez is agreeable with plan. Placed comfort measure order, comfort measure order set, discontinued maintenance medication per V/O from Dr Marquez. Spoke with Pt's nurse Gian and he is agreeable with plan. Spoke with case folder Brandy regarding plan including possible placement for Pt. Brandy reports she has Pt's friend working with [employer]. Plan: Pt placed on comfort care. Possible placement to foster home or custodial on hospice. Will remain available for symptom management.
--- NOTE | 2018-09-26 16:46 | NUR ---
SHIFT SUMMARY THE PATIENT PRESENTED THIS WITH DIMISHED LUNG SOUNDS, A&O X3 AND WITH VITALS THAT WERE WNL, EXCEPT HIS TEMP WAS UP TO 100.2. THE PATIENT'S TEMP WAS BACK DOWN TO 98.5 WITHIN A HOUR. THE PATIENT WAS MOVED TO COMFORT CARE THIS SHIFT. WILL CONTINUE TO MONITOR.
--- NOTE | 2018-09-27 05:05 | NUR ---
PT DEVELOPED RASH OVER ENTIRE UPPER CHEST WITH INCREASED CONFUSION. THIS NURSE CALLED DR WEBER AND ADVISED OF ABOVE WITH ORDERS FOR BENADRY 25MG IVP RECEIVED.
--- NOTE | 2018-09-27 05:50 | NUR ---
77 Y/O MALE COMFORT CARE PATIENT RESTED QUIETYLY 1/2 SHIFT. PT GIVEN ROXANOL 10MG PO AT 0300 AND THEN ATIVAN 1MG IVP FOR INCREASED ANXIETY. PT DEVELOPED HIVES TO ENTIRE CHEST WITH BENADRYL 25MG IVP GIVEN. PT VERY RESTLESS AND REQUIRED STAFF TO WATCH CLOSELY AND BED ALARM ON. PTS BED IN LOW POSITION AND CALL LIGHT AT SIDE.
--- NOTE | 2018-09-27 14:01 | NUR ---
PATIENT ASLEEP. NO DISTRESS NOTED. BED ALARM ON
--- NOTE | 2018-09-27 14:02 | NUR ---
PATIENT HAD BRIEF AND BED CHANGED. CONTINUES TO SHOW NO SS OF DISTRESS
--- NOTE | 2018-09-27 15:46 | NUR ---
COATER OPERATOR INSULATION BOARD AND REPOSITIONED AND CHANGED BRIEF. HALDOL GIVEN FOR AGITATION. BED ALARM IN PLACE. OFFERED ICE CHIPS
--- NOTE | 2018-09-27 19:12 | NUR ---
SHIFT SUMMARY: PATIENT XFR FROM 360 THIS SHIFT. PATIENT ALERT; ORIENTED TO SELF; CALM, COOPERATIVE WITH CARE. NO C/O PAIN OR NAUSEA. AWAITING D/C TO SNF OR ADULT FOSTER CARE WITH HOSPICE. REPORT GIVEN TO ONCOMING RN.
--- NOTE | 2018-09-28 05:30 | NUR ---
VSS, FEBRILE, A/O TO SELF AND LOCATION AT TIMES, IMPULSIVE, JUMPS OOB FREQUNTLY, HIGH FALL RISK, BED ALARM, PT REPORTS TAHT HE HAS CANCER AND QUESTIONS WHY WE ARE PROTECTING HIM FROM FALLING. VERY RESTLESS OVERNOC. WILL REPORT TO ON-COMING SHIFT.
--- NOTE | 2018-09-28 06:21 | NUR ---
PT HAS PULLED OUT HIS POWERGLIDE THAT WAS IN HIS LEFT UPPER ARM. PT'S ARM HAD BEEN BANDAGED WITH ZANDRA BANDAGE TO DISCOURAGE THIS FROM HAPPENING. PT IS NPO PENDING TREATMENT PLAN FROM MD. NO FLUIDS/NUTRITION HAS BEEN ORDERED THRU THAT LINE YET. PT REMAINS APATHETIC TO IT'S REMOVAL AND STATES THAT HE HAS CANCER AND WANTS TO GO HOME. WILL REPORT TO ON-COMING SHIFT.
--- NOTE | 2018-09-28 08:20 | NUR ---
Visited with Chino this morning. He has a chronic weak cough and c/o his back being tired from laying in bed. Offered to reposition him , but he declined. He is having visual hallucinations and asking his aunt sitting the chair next to him what they just had for lunch. He voices no requests. Will continue to keep him comfortable. He is NPO with ice chips. He appears calm and not in any distress at this time.
--- NOTE | 2018-09-28 13:05 | NUR ---
PT IN NO APPARENT DISTRESS. NO DYSPNEA/SECRETIONS. NO FAMILY MEMBERS PRESENT. WCTM.
--- NOTE | 2018-09-28 13:08 | NUR ---
PT IN NO APPARENT DISTRESS. NO DYSPNEA/SECRETIONS. NO FAMILY MEMBERS PRESENT. WCTM.
--- NOTE | 2018-09-28 18:54 | NUR ---
SHIFT SUMMARY: NO ACUTE CHANGES TO REPORT THIS SHIFT. PT ALERT; ORIENTED TO SELF. COMFORT CARE MEASURES REMAIN IN EFFECT. PT REMAINS NPO R/T ESOPHAGEAL MASS. MEDICATED FOR BACK & NECK PAIN PER EMAR. AWAITING HOSPICE IN SNF OR ADULT FOSTER HOME. REPORT GIVEN TO ONCOMING RN.
--- NOTE | 2018-09-28 19:46 | NUR ---
VSS, AFEBRILE, ALERT, RESTLESS, MUMBLING ALMOST INCOHERENTLY, PULLING AT HIS BRIEF AND MOVING HIS LEGS RESTLESSLY IN BED. WILL MEDICATE PER ORDER
--- NOTE | 2018-09-29 06:11 | NUR ---
VSS, AFEBRILE, PT RESTLESS AND IRRITABLE IN THE EARLY PART OF THIS SHIFT. PT WAS MEDICATED FOR PAIN PER ORDER AND HAS SLEPT ALL NIGHT SINCE THEN. NO FURTHER C/O PAIN OR DISCOMFORT. PT IS MONITORED CLOSELY BY STAFF.
--- NOTE | 2018-09-29 10:20 | NUR ---
DR. OSCAR SAID OK TO PUT IN NO IV ACCESS NEEDED ORDER. NOTIFIED DR. OSCAR PT HAS IV PEPCID ORDERED. NOTIFIED DR. OSCAR PHARMACY REPORTS THEY DO NOT HAVE PEPCID IN SUBLINGUAL OR IM. DR. OSCAR SAID TO D/C PEPCID IF PHARMACY DOES NOT HAVE LIQUID PEPCID. PEPCID IN LIQUID FORM NOT AVAILABLE. NO OTHER NEW ORDERS AT THIS TIME.
--- NOTE | 2018-09-29 16:15 | NUR ---
SHIFT SUMMARY- PT ASLEEP MOST OF THIS SHIFT. PT WOKE UP BRIEFLY THIS AFTERNOON. PT DENIES PAIN. DENIES SOB. RESP E/U ON RA. DENIES N/V. TURNS Q2H. NO OTHER SIGNIFICANT CHANGES THIS SHIFT.
--- NOTE | 2018-09-29 19:12 | NUR ---
pt resing comfortably at tiem of visit sleeping most of time. Review of medication needs with nurisng to main tain comfort.
--- NOTE | 2018-09-30 04:43 | NUR ---
SHIFT SUMMARY PT ADMITTED FOR WEAKNESS. NOTED TO HAVE AN ESOPHAGEAL MASS THAT IS INVASIVE AND MODERATELY DIFFERENTIATED SQUAMOUS CELL CARCINOMA. DNR AND COMFORT CARE. NO KELLY ACCESS NEEDED. UNSURE OF TRANSFER ABILITY PT HAS NOT BEEN OUT OF BED SO FAR THIS SHIFT NOR ON SHIFT PRIOR FOR REPORT OF TRANSFER ABILITY. PT IS FOLLOWED BY DR. MOONEY WHO WANTED TO PERFORM A LIVER BIOPSY. CONSULTED WITH DR. COLLINS REGARDING THE PLACEMENT OF A PEG TUBE, WHICH WAS UNSUCCESSFUL DUE TO THE ESPOPHAGEAL MASS BEING TOO LARGE AND PREVENTING THE ABILITY TO PLACE THE PEG TUBE. THE PT HAS BEEN CHANGEGED TO COMFORT CARE AND IS AWAITING PLACEMENT TO A SNF OR AN ADULT FOSTER HOME. THE PT SLEPT MOST OF THE SHIFT. NO C/O PAIN. THE PT DID VOID IN URINAL THIS SHIFT. THE PT APPEARS TO BE SLEEPING COMFORTABLY AT THIS TIME. WILL CONTINUE TO MONITOR.
--- NOTE | 2018-09-30 08:00 | NUR ---
PT. LYING QUIETLY OPENS EYES WHEN SPOKEN TO. DENIIES PAIN OR NAUSEA. DRINK OF WATER GIVEN PER PT. REQUEST. PT. TURNS SELF.
--- NOTE | 2018-09-30 10:00 | NUR ---
PT. SLEEPING, BREATHING EVEN AND DEEP.
--- NOTE | 2018-09-30 11:00 | NUR ---
Met with Chino briefly in his room this morning. He awakens when spoken to. He denies any symptoms at this time. He dozes off and on during our conversation but he appears to be very comfortable. He denied any needs during my visit.
--- NOTE | 2018-09-30 12:00 | NUR ---
PT. SLEEPING, OPENED EYES WHEN I ENTERED THE ROOM AND ASKED FOR A DRINK. DRINK OF WATER, MARINO WELL.
--- NOTE | 2018-09-30 14:00 | NUR ---
PT. SLEEPING BREATHING SHALLOW AND EVEN
--- NOTE | 2018-09-30 16:00 | NUR ---
PT. ASKING FOR BED TO BE RAISED UP.
--- NOTE | 2018-09-30 17:18 | NUR ---
PT. SITTING UP IN BED WATCHING TV. DENIES PAIN OR NAUSEA.
--- NOTE | 2018-09-30 18:05 | NUR ---
Mr. Burton appeared to be comfortably sleeping. He did not awaken to voice or touch. He appears to be well cared-for by nursing without signs of distress or pain. Advanced Quality Engineer services will remain available.
--- NOTE | 2018-09-30 18:23 | NUR ---
PT. WATCHING TV, NO NOTEABLE CHANGES THIS SHIFT. HAS SLEPT MOST OF THE DAY.
--- NOTE | 2018-10-01 03:48 | NUR ---
SHIFT SUMMARY NO APPARENT ACUTE CHANGES NOTED SO FAR THIS SHIFT. PT CONTINUES ON CC MEASURES AND HAS REQUIRED NO MEDICATIONS OR C/O PAIN SO FAR THIS SHIFT. THE PT HAS BEEN TOLLERATING ORAL FLUIDS (WATER) VERY WELL THIS SHIFT. THE PT IS VERY PLEASENT AND COOPERATIVE, AND ABLE TO MAKE NEEDS KNOWN AT TIMES USING CALL LIGHT. HOWEVER, PT DOES CALL OUT WITH SOME CONFUSION AND IMPULISIVENESS WITH POOR SAFETY AWARENESS. BED ALARM FOR SAFETY. CALL LIGHT IN REACH. WILL CONTINUE TO MONITOR.
--- NOTE | 2018-10-01 06:10 | NUR ---
PAIN UPDATE PT HAD C/O SEVERE 10/10 BACK PAIN, ADMINISTERED MEDS PER EMAR AND PT STATED 1 HR LATER THAT MEDS WERE BROUGHT PAIN DOWN ONLY TO 8/10. MEDICATED AGAIN PER EMAR AND PT NOW APPEARS TO BE SLEEPING COMFORTABLE.
--- NOTE | 2018-10-01 08:17 | NUR ---
PT. LYING IN BED DENIES PAIN OR NAUSEEA AT THIS TIME. REQUESTED "SOMETHING TO MAKE ME SLEEP" REMINDED HIM IT WAS MORNING, HE STATES"I KNOW". LET PT KNOW I WOULD CHECK FOR SLEEP AIDE.
--- NOTE | 2018-10-01 11:10 | NUR ---
PT. WATCHING TV NO S/S OF DISTRESS AT THIS TIME.
--- NOTE | 2018-10-01 12:00 | NUR ---
PT. APPEARS COMFORTABLE AT THIS TIME. DENIES PAIN
--- NOTE | 2018-10-01 12:21 | NUR ---
PT. WATCHING TV DENIES PAIN OR NAUSEA.
--- NOTE | 2018-10-01 17:51 | NUR ---
PT. WITHOUT CHANGE THIS SHIFT. PAIN MEDS GIVEN EARLIER TODAY AND PT. HAS DENIED NEED OF ANY FOR THE REST OF THIS SHIFT.
--- NOTE | 2018-10-02 05:07 | NUR ---
SHIFT SUMMARY NO APPARENT ACUTE CHANGES NOTED OVER NIGHT. NO C/O PAIN SO FAR THIS SHIFT. PT APPEARED TO SLEEP COMFORTABLY MOST OF THE NIGHT. PT IS UP AT THIS TIME USING URINAL. NO APPARENT SIGNS OF ACUTE DISTRESS. ABLE TO MAKE NEEDS KNOWN AND CALL LIGHT IN REACH.
--- NOTE | 2018-10-02 07:45 | NUR ---
PT. LYING QUIETLY DENIES NEED OF ANYTHING FOR PAIN. COLD WATER GIVEN, MARINO WELL.
--- NOTE | 2018-10-02 08:00 | NUR ---
PT. TRANSFERRED TO ROOM 328, ARINA VARELA TAKING OVER PT. CARE.
--- NOTE | 2018-10-02 11:35 | NUR ---
PATIENT RESTING , LIDOCAINE PATCH APPLIED. PATIENT GIVEN WATER IN SIPPY CUP TO DRINK PER HIS REQUEST. PATIENT USED URINAL.
--- NOTE | 2018-10-02 15:41 | NUR ---
PATIENT GIVEN ICE CHIPS AND WATER TO DRINK . NO PAIN AT THIS TIME. PATIENT RESTING.
--- NOTE | 2018-10-02 18:33 | NUR ---
NO CHANGES TO PATIENTS CONDITION THIS SHIFT. COMFORT CARE CHECKS Q2 . WATER OFFERED WHEN ASKED. NO ISSUES WHILE DRIKING.
--- NOTE | 2018-10-02 18:53 | NUR ---
Therapeutic visit this evening. Pt resting in bed and is watching television upon arrival. Pt reports pain in his back and across his chest. He does not verbalize intensity on a pain scale and states "its high". Asked Pt if he has any other concerns he states no. Asked Pt if his friend Kerry has been in to visit and Pt reports that she has not. He states they "moved me to a different room today". Pt reports that he is being treated well be nursing staff had no concerns at this time. Spoke with Pt's nurse Anne and reported Pt's pain. She reports just administering oxycodone and plans to reassess pain shortly. Anne reports no concerns at this time. Will remain available for symptom management.
--- NOTE | 2018-10-03 04:54 | NUR ---
SHIFT SUMMARY PT RESTED WELL T/O SHIFT. DISCOMFORT MANAGED WELL. PT CURRENTLY SLEEPING AND IN NO DISTRESS.
--- NOTE | 2018-10-03 10:00 | NUR ---
PATIENT SLEEPING SOUNDLY. NO DISTRESS NOTED.
--- NOTE | 2018-10-03 10:01 | NUR ---
PATIENT SLEEPING. NO DISTRESS NOTED. COVERS ADJUSTED.
--- NOTE | 2018-10-03 17:32 | NUR ---
PATIENT HAS SLEPT ALL SHIFT. COMFORT CARE CHECKS WERE MADE Q2H. NO DISTRESS NOTED. FLUIDS OFFERED POSSIBLE.
--- NOTE | 2018-10-04 08:07 | NUR ---
AM ASSESSMENT- PT LYING IN BED AWAKE, PT A/O TO PERSON AND PLACE. PT REPORTS 8/10 PAIN TO LOWER BACK, LIDOCAINE PATCH AND APPLIED AND 10MG ROXANOL GIVEN. PT DENIES ANY OTHER COMPLAINTS. LS CLEAR, ON RA. HRR. PT DENIES TO BE REPOSTIONED AT THIS TIME. EGGCRATE IN PLACE. DARM DESHAWN URINE, PT USES URINAL INDEP. PT OFFERED TO BE PLACED ON A DIET AND REPORTS HE DOES NOT WANT ANY FOOD. NO IV ACCESS IN PLACE. DNR WRISTBAND TO RIGHT WRIST.
--- NOTE | 2018-10-04 14:56 | NUR ---
OFFERED PT SOMETHING TO EAT WELL BOWEL PROTOCOL, PT REFUSED BOTH AT THIS TIME.
--- NOTE | 2018-10-04 16:45 | NUR ---
SHIFT SUMMARY- PT A COMFORT CARE PT. A/O TO PERSON AND PLACE. PT MEDICATED X2 WITH ROXANOL FOR LOWER BACK PAIN. LS CLEAR, ON RA. HRR. SCABS T/O. PT STARTED ON MECH SOFT DIET, PT REPORTS HE DOES NOT WANT TO EAT BUT IS TAKING IN FLUIDS, PT GIVEN CHOCOLATE ENSURE. PT REFUSED BOWEL CARE, NO BM SINCE ADMIT BUT STATES HE HAS NOT EATEN ANYTHING. PT REFUSED TO BE REPOSITIONED BUT IS ABLE TO REPOSITION SELF IN BED, PT WAS ABLE TO SIT AND DANGLE AT BEDSIDE INDEP. NO OTHER ACUTE CHANGES THIS SHIFT.
--- NOTE | 2018-10-04 23:14 | NUR ---
2000: PATIENT RESTING QUIETLY WITH EYES CLOSED AND IN NO APPARENT DISTRESS 2199: PAIN MEDS GIVEN PER EMAR FOR 10/10 PAIN PER PATIENT REPORT; LIDOCAINE PATCH REMOVED
--- NOTE | 2018-10-05 06:12 | NUR ---
SHIFT SUMMARY: PATIENT WAS RATHER RESTLESS MUCH OF THE SHIFT BUT HAD SLEPT MOST OF THE PREVIOUS SHIFT, LOTION APPLIED TO REDDENED BOTTOM AND TURNED PATIENT WOULD ALLOW.
--- NOTE | 2018-10-05 09:01 | NUR ---
PT LYING IN BED AWAKE, REPORTS 10/10 PAIN TO LOWER BACK, LIDODERM PATCH APPLIED AND 20MG ROXANOL GIVEN. PT DENIES ANY OTHER COMPLAINTS. LS CLEAR, ON RA. BEDBATH COMPLETED AND LINENS CHANGED, BUTTOCKS RED, CALAZIME APPLIED. PT INCONT OF DESHAWN URINE. PT DENIED BREAKFAST TODAY BUT IS TAKING IN PO FLUIDS. PT REPOSITIONED AND CALL LIGHT IN REACH.
--- NOTE | 2018-10-05 13:48 | NUR ---
PT HAD CAREGIVER AND FRIEND AT BEDSIDE, VERY UPSET THAT PT WAS MOVED AGAIN AND THE PT WAS NOT ALLOWED ANY FOOD. I INFORMED THEM THAT PT HAS NOW BEEN PUT ON A DIET BUT IS ONLY TAKING IN LIQUIDS AT THIS TIME PER PT REQUEST. CAREGIVER MARJAN ROBLERO ([phone]) WOULD LIKE A PHONE CALL WHENEVER PT IS TRANSFERED OR DISCHARGED OR ANY CHANGES TO PATIENT.
--- NOTE | 2018-10-05 16:46 | NUR ---
SHIFT SUMMARY- PT COMFORT CARE PT. PT MEDICATED X1 THIS AM WITH 10MG ROXANOL, PT SLEPT WELL T/O THE SHIFT. PT CONTINUES TO NOT WANT TO EAT BUT IS DRINKING FLUIDS. PT CAREGIVER AND FRIEND IN TO SEE PT TODAY. NO OTHER ACUTE CHANGES THIS SHIFT.
--- NOTE | 2018-10-06 10:53 | NUR ---
COMFORT CARE NOTE PT LYING IN BED. COMPLAINS OF PAIN IN EPIGASTRIC AREA. LIDOCAINE PATCH PLACED AND ROXANOL ADMINISTERED. PT DECLINES FOR STAFF TO REPOSITION HIM AT THIS TIME. NO FURTHER COMPLAINTS OR REQUESTS. WILL MONITOR FOR EFFECTIVENSS OF PAIN MEDICATION AND COMFORT.
--- NOTE | 2018-10-06 11:14 | NUR ---
RADIOISOTOPE TECHNOLOGIST AND FLOAT RADIOISOTOPE TECHNOLOGIST GAVE PT BEDBATH
--- NOTE | 2018-10-06 18:40 | NUR ---
SHIFT SUMMARY PT HAS BEEN SLEEPING A LOT OF THE SHIFT. MEDICATED FOR PAIN X1 THIS SHIFT. PT HAS NOT WANTED TO EAT ANYTHING THROUGH OUT THE DAY. DRINKING SMALL AMOUNTS. NO CHANGES THIS SHIFT. CALL LIGHT IN REACH. WILL CONTINUE TO MONITOR AND REPORT TO ONCOMING RN.
--- NOTE | 2018-10-06 23:15 | NUR ---
10/06/18 2300 C/O GENRAL PAIN AT LEVEL "8". SEE MAR FOR MED GIVEN. REFUSED TO TURN AT THIS TIME. REFUSED ORAL OR TERELL CARE AT THIS TIME. WATCHING TV.
--- NOTE | 2018-10-07 04:35 | NUR ---
10/07/18 0400 SLEEPING AT PRESENT WITHOUT DISTRESS OR DISCOMFORT NOTED.
--- NOTE | 2018-10-07 09:30 | NUR ---
PT. SLEEPING, BREATHING SHALLOW.
--- NOTE | 2018-10-07 11:30 | NUR ---
PT. SITTING UP IN BED DRINKING ENSURE, DENIES PAIN
--- NOTE | 2018-10-07 13:30 | NUR ---
PT. SLEEPING ONCE AGAIN, BREATHING SHALLOW
--- NOTE | 2018-10-07 15:38 | NUR ---
PT. REPORTED INCREASING PAIN IN THEIR BACK. ROXANOL GIVEN
--- NOTE | 2018-10-07 17:51 | NUR ---
PT. WATCHING TV DENIES PAIN. NO CHANGE THIS SHIFT.
--- NOTE | 2018-10-07 18:00 | NUR ---
NO CHANGES THIS SHIFT. PT. REQUESTED PAINN MEDS ONCE TODAY AND WAS GIVEN ROXANOL.
--- NOTE | 2018-10-07 20:15 | NUR ---
PT OBSERVED TO BE RESTING QUIETLY IN HIS BED WITH HIS EYES CLOSED. NO COMPLAINTS AT THIS TIME. WILL CONTINUE TO MONITOR.
--- NOTE | 2018-10-08 05:50 | NUR ---
VSS, AFEBRILE, A/O BUT FORGETFUL/CONFUSED AT TIMES, COMFORT CARE, NO IV AND MD AWARE, PT REMOVED HIS LIDOCAINE PATCH AND THREW IT ON THE FLOOR, NO SIGNIFICANT CHANGES NOTED. WILL REPORT TO ON-COMING SHIFT.
--- NOTE | 2018-10-08 07:49 | NUR ---
PT. LYING IN BED NO CLOTHES OR ATTENDS ON TRYING TO COVER UP WITH BEDSPREAD WITH COFFEE ON IT. ATTENDS REMOVED BY PT R.T. HAVING COFFEE ALL OVER IT. URINAL ON BS TABLE WITH 100 CC OF DESHAWN-COLORED URINE, WEISS WET. CHANGED BEDDING AND CLEANED PT UP, PLACED ATTENDS AND CLEAN GOWN AND COVERED PT. WITH WARMED BLANKET.
--- NOTE | 2018-10-08 12:15 | NUR ---
PT. REPORTING HIS BACK IS HURTING, REPOSOTIONED AND PAIN MEDS GIVEN
--- NOTE | 2018-10-08 12:41 | NUR ---
Pt is resting in bed upon arrival. He appears comfortable and reports no pain at this time. He states "the girls are keeping my pain away". Pt's speech is mumbled and difficult to understand. His lunch is in front of him. Asked if he was hungry and Pt states "no". Pt appears lethargic and weak. Pt reports that he is comfortable. Pt reports no concerns at this time. Pt's nurse Anne reports no concerns at this time. Will remain available for symptom management.
--- NOTE | 2018-10-08 13:47 | NUR ---
PT. WATCHING TV, DENIES NEED OF ANYTHING
--- NOTE | 2018-10-08 14:15 | NUR ---
PT. SLEEPING AT THIS TIME, NO S/S OF DISTRESS.
--- NOTE | 2018-10-08 16:10 | NUR ---
PT. SLEEPING, BREATHING SHALLOW BUT EVEN
--- NOTE | 2018-10-08 18:29 | NUR ---
PT. SLEEPING QUIETLY. NO NOTEABLE CHANGES THIS SHIFT. HAS NOT EATEN TODAY AND HAS SLEPT MOST OF THE DAY. BREATHING UNEVEN AND SHALLOW.
--- NOTE | 2018-10-09 05:43 | NUR ---
sHIFT SUMMARY: pT HAS BEEN SLEEPING MOST OF SHIFT. pT WOKE UP AROUND O330, GROANING and said that he needed something for pain. Roxinol given for pain with good relief. Pt appears to be resting comfortably again. Respirations even and unlabored.
--- NOTE | 2018-10-09 13:06 | NUR ---
Pt resting in bed and appears comfortable. Pt denies pain at this time. Speech is somewhat mumbled and difficult to understand. No signs of distress at this time. Offered therapeutic voice. Asked if he is being treated well and Pt states yes. Spoke with Pt's nurse Gian and he reports no concerns at this time. Will remain available for symptom mangement.
--- NOTE | 2018-10-09 16:14 | NUR ---
SHIFT SUMMARY THE PATIENT IS ON COMFORT CARE. THE PATIENT HAS BEEN REPOSITIONED DIRECTED AND HAS RECEIVED ROXANOL TWICE DURING THE SHIFT. THE PATIENT IS RESTIENT AT THIS TIME, WILL CONTINUE TO MONITOR.
--- NOTE | 2018-10-09 21:07 | NUR ---
Pt at 1914. Caregtiver notiofied. She stated there was no family to notify. charge nurse and doctor notified.
--- NOTE | 2018-10-09 21:50 | NUR ---
Pt transferred to home at 2143. No family or friends here.
== END 2018-10-09 19:15 | DRG 374 ==
LOC: ER 17:31 → MEDS 22:24
PROVIDERS: Emergency Medicine; Family Medicine; Internal Medicine; Internal Medicine Gastroenterology; Internal Medicine Hematology & Oncology; ADMIT Internal Medicine
PROC: 30233N1 Transfusion of Nonautologous Red Blood Cells into Peripheral Vein, Percutaneous Approach (ICD-10-PCS; 2018-09-20)
PROC: 30233R1 Transfusion of Nonautologous Platelets into Peripheral Vein, Percutaneous Approach (ICD-10-PCS; 2018-09-21)
PROC: 0DD38ZX Extraction of Lower Esophagus, Via Natural or Artificial Opening Endoscopic, Diagnostic (ICD-10-PCS; principal; 2018-09-25 10:00)
DX: C15.5 Malignant neoplasm of lower third of esophagus (principal); G92 Toxic encephalopathy; C78.7 Secondary malignant neoplasm of liver and intrahepatic bile duct; Z68.1 Body mass index [BMI] 19.9 or less, adult; D61.818 Other pancytopenia; R62.7 Adult failure to thrive; D64.9 Anemia, unspecified; R53.81 Other malaise; Z51.5 Encounter for palliative care; F17.210 Nicotine dependence, cigarettes, uncomplicated; D69.6 Thrombocytopenia, unspecified
CPT/HCPCS: 36415; 36430; 70470; 71046; 71260; 74177; 80053; 81001; 82272; 82378; 82607; 82728; 82746; 82947; 83540; 83550; 83735; 84100; 84439; 84443; 84478; 85025; 85027; 85045; 85049; 85610; 85730; 86301; 86850; 86900; 86901; 86923; 87086; 88305; 93005; 93010; 97110; 97116; 97163; 97166; 97530; 99285-25; J0690; J1200; J1630; J2060; J2270; J2704; J3010; J7030; J7050; J7120; P9016; P9035; P9053; Q9967